=== PATIENT | male | born 2000 | race African-American/Black ===

== ENCOUNTER 2019-10-27 20:33 | Emergency (ER) | payer OTHER ==
[~2019-10-27] VITALS: Ht 182.9 cm; Wt 68.0 kg
[2019-10-27 20:47] VITALS: BP 118/67
--- NOTE | 2019-10-27 21:42 | NUR ---
FINGER SLPINT APPLIED TO RIGHT 5TH DIGIT. +CMS
== END 2019-10-28 00:46 | disposition home or self-care (01) ==
LOC: ER 20:36
DX: S62.636A Displaced fracture of distal phalanx of right little finger, initial encounter for closed fracture (principal); W21.05XA Struck by basketball, initial encounter; Y93.67 Activity, basketball; Y92.310 Basketball court as the place of occurrence of the external cause; Y99.8 Other external cause status
CPT/HCPCS: 73140-TC